=== PATIENT | male | born 1955 | race Caucasian/White ===

== ENCOUNTER 2020-04-07 08:04 | Inpatient (IN) | payer OTHER ==
[~2020-04-07] VITALS: Ht 167.6 cm; Wt 110.0 kg
[~2020-04-07 08:04] MED LIST: ALBU8.5H8 IH; LISI-600 PO
[2020-04-07 09:08] LABS: BASOPHILS % (AUTO) 0.5 % (0-1); EOSINOPHILS # (AUTO) 0.2 X10'3 (0-0.9); EOSINOPHILS % (AUTO) 2.4 % (0-6); HEMATOCRIT 46.8 % (42.0-52.0); HEMOGLOBIN 15.8 g/dl (14.0-17.9); LYMPHOCYTES # (AUTO) 1.8 X10'3 (1.1-4.8); LYMPHOCYTES % (AUTO) 25.1 % (21-51); MEAN CORPUSCULAR HEMOGLOBIN 32.6 PG (27.0-31.0); MEAN CORPUSCULAR HGB CONC 33.8 g/dL (33.0-36.5); MEAN CORPUSCULAR VOLUME 96.2 FL (78-98); MEAN PLATELET VOLUME 8.2 FL (7.4-10.4); MONOCYTES # (AUTO) 0.7 X10'3 (0-0.9); MONOCYTES % (AUTO) 9.9 % (2-12); NEUTROPHILS # (AUTO) 4.4 X10'3 (1.8-7.7); NEUTROPHILS % (AUTO) 62.1 % (42-75); PLATELET COUNT 254 X10'3 (140-440); RED BLOOD COUNT 4.87 X10'6 (4.70-6.10); RED CELL DISTRIBUTION WIDTH 14.7 % (11.5-14.5); WHITE BLOOD COUNT 7.2 X10'3 (4.5-11.0)
[2020-04-07 09:22] LABS: ALANINE AMINOTRANSFERASE 26 U/L (12-78); ALBUMIN 3.3 G/DL (3.4-5.0); ALBUMIN/GLOBULIN RATIO 0.9 (1.1-1.5); ALKALINE PHOSPHATASE 68 IU/L (46-116); ANION GAP 8 (8-16); ASPARTATE AMINO TRANSFERASE 22 U/L (10-37); BILIRUBIN,TOTAL 0.3 MG/DL (0.1-1.0); BLOOD UREA NITROGEN 12 MG/DL (7-18); BUN/CREATININE RATIO 13.8 (5.4-32.0); CALCIUM 8.1 MG/DL (8.5-10.1); CHLORIDE 106 MMOL/L (99-107); CREATININE 0.87 MG/DL (0.60-1.10); GLUCOSE 150 MG/DL (70-104); POTASSIUM 4.5 MMOL/L (3.5-5.1); SODIUM 140 MMOL/L (135-145); TOTAL CARBON DIOXIDE 26.1 MMOL/L (24-32); TOTAL PROTEIN 6.8 G/DL (6.4-8.2); eGFR 89 ML/MIN
[2020-04-07] MEDS ORDERED: CefTRIAXone/D5W-Rocephin 1gm 50 ML IV ONE (10:00)
[2020-04-07] MEDS ORDERED: normal saline 1000ML IV soln IVB ONE (10:00)
--- NOTE | 2020-04-07 10:47 | NUR ---
Moise Goins RN is in the room with the patient attempting to collect blood cultures, repeat lactic acid and repeat troponin labs at this time. Pt is pending COVID-19 swab results at this time.
--- NOTE | 2020-04-07 11:10 | NUR ---
Informed Dr. Campo that he has been taking 32 tabs of ASA per day, used methaphamines yesterday. Dr. Campo gave [facility] health diet to start now.
[2020-04-07] MEDS ORDERED: ATOR20TA66 PO (11:41)
[2020-04-07] MEDS ORDERED: METF-950 PO (11:41)
--- NOTE | 2020-04-07 11:48 | NUR ---
Dr. Reese phoned about the patient and will come see him to give admission orders.
[2020-04-07] MEDS ORDERED: levoFLOXACIN-Levaquin 500mg/D5 100 ML IV SCH (12:10)
[2020-04-07] MEDS ORDERED: potassium Cl 20 mEq SR tablet PO PRN ×2 (12:10)
[2020-04-07] MEDS ORDERED: ondansetron/PF 4mg/2ml inj IV PRN (12:10)
[2020-04-07] MEDS ORDERED: acetaminophen 325mg tablet PO PRN (12:10)
[2020-04-07] MEDS ORDERED: potassium CL 10mEq/100ml bag 100 ML IV PRN ×2 (12:10)
--- NOTE | 2020-04-07 12:18 | NUR ---
Sakina GUTIERREZ at bedside.
[2020-04-07] MEDS ORDERED: ALBU8.5H8 IH (12:24)
[2020-04-07] MEDS ORDERED: AMLO10TA13 PO (12:24)
[2020-04-07] MEDS ORDERED: LISI-600 PO (12:24)
[2020-04-07] MEDS ORDERED: ASPI-1264 PO (12:33)
[2020-04-07] MEDS ORDERED: ALBUTEROL (12:38)
[2020-04-07] MEDS ORDERED: TIOT18CA3 INH (12:38)
--- NOTE | 2020-04-07 13:10 | NUR ---
Attempted to phone report to [place] nurse, Receiving RN is unavailable to take report but will return the call in a few moments.
[2020-04-07 13:29] LABS: HEMOGLOBIN A1C 7.9 % (4.5-6.2)
--- NOTE | 2020-04-07 13:31 | NUR ---
Patient in room ED 3. I have received report from MATT Ewing and had the opportunity to ask questions and assume patient care.
[2020-04-07 15:01] VITALS: BP 126/78
--- NOTE | 2020-04-07 16:03 | NUR ---
Pt is threatening to leave the hospital. talking to someone on the phone stating "as soon as you get here I will remove this IV and walk out of here". pt has been uncooperative with care since his arrival to this floor.
[2020-04-07] MEDS ORDERED: HYDROcodone/acetaminophen 10/325mg tab PO PRN (16:45)
[2020-04-07] MEDS ORDERED: insulin Lispro (HumaLOG) vial - multi-dose SQ SCH (16:45)
[2020-04-07] MEDS ORDERED: MESSAGE TO PHARMACY PO ONE (16:45)
[2020-04-07] MEDS ORDERED: dextrose 50%-water 50ml dispensing syringe IV PRN ×2 (16:45)
[2020-04-07] MEDS ORDERED: glucagon, human recombinant 1mg kit SUBCUT PRN (16:45)
[2020-04-07] MEDS ORDERED: dextrose ORAL solution 15 GM/59 ML bottle PO PRN ×2 (16:45)
--- NOTE | 2020-04-07 18:53 | NUR ---
Problems reprioritized. Patient report given, questions answered & plan of care reviewed with MATT Kelly.
--- NOTE | 2020-04-07 18:54 | NUR ---
Patient in room JOE 346. I have received report from MATT Schwartz and had the opportunity to ask questions and assume patient care.
[2020-04-07 19:00] VITALS: BP 125/68
[2020-04-07] MEDS: ipratropium/albuterol 3ml nebule NEB SCH ×2 (19:20→23:35)
[2020-04-07] MEDS: heparin, porcine 5000 units/ml vial SQ SCH (19:47)
[2020-04-07] MEDS: furosemide 40mg/4ml inj IV SCH (19:47)
[2020-04-07] MEDS ORDERED: K and/or MAG REPLACEMENT MC SCH (20:00)
[2020-04-07] MEDS ORDERED: insulin glargine (Lantus) pen - multi-dose SQ SCH (21:00)
[2020-04-08] VITALS: BP 133/90
[2020-04-08 04:58] LABS: BASOPHILS % (AUTO) 0.7 % (0-1); EOSINOPHILS # (AUTO) 0.2 X10'3 (0-0.9); EOSINOPHILS % (AUTO) 2.9 % (0-6); HEMOGLOBIN 16.6 g/dl (14.0-17.9); LYMPHOCYTES # (AUTO) 1.9 X10'3 (1.1-4.8); LYMPHOCYTES % (AUTO) 27.3 % (21-51); MEAN CORPUSCULAR HEMOGLOBIN 31.7 PG (27.0-31.0); MEAN CORPUSCULAR HGB CONC 33.2 g/dL (33.0-36.5); MEAN CORPUSCULAR VOLUME 95.5 FL (78-98); MONOCYTES # (AUTO) 0.6 X10'3 (0-0.9); MONOCYTES % (AUTO) 8.8 % (2-12); NEUTROPHILS # (AUTO) 4.2 X10'3 (1.8-7.7); NEUTROPHILS % (AUTO) 60.3 % (42-75); PLATELET COUNT 264 X10'3 (140-440); RED BLOOD COUNT 5.24 X10'6 (4.70-6.10); RED CELL DISTRIBUTION WIDTH 15.3 % (11.5-14.5); WHITE BLOOD COUNT 6.9 X10'3 (4.5-11.0)
[2020-04-08 05:07] LABS: ALBUMIN 3.5 G/DL (3.4-5.0); ANION GAP 6 (8-16); BLOOD UREA NITROGEN 17 MG/DL (7-18); BUN/CREATININE RATIO 15.7 (5.4-32.0); CALCIUM 8.9 MG/DL (8.5-10.1); CHLORIDE 104 MMOL/L (99-107); CHOL/HDL RATIO 2.7 (0.00-4.99); CHOLESTEROL 128 MG/DL (0-200); CREATININE 1.08 MG/DL (0.60-1.10); GLUCOSE 145 MG/DL (70-104); HDL CHOLESTEROL 47 MG/DL (35-60); LDL CHOLESTEROL 68 MG/DL (50-100); POTASSIUM 4.4 MMOL/L (3.5-5.1); SODIUM 139 MMOL/L (135-145); TOTAL CARBON DIOXIDE 29.1 MMOL/L (24-32); TRIGLYCERIDES 68 MG/DL (20-135); eGFR 69 ML/MIN
--- NOTE | 2020-04-08 05:57 | NUR ---
received report from ED, RN, patient was transported on rmonument to her room. In no apparent distress. Addendum: 04/08/20 at 0559 by Robin Howard RN wrong patient
--- NOTE | 2020-04-08 06:40 | NUR ---
Problems reprioritized. Patient report given, questions answered & plan of care reviewed with MATT Moran.
--- NOTE | 2020-04-08 06:45 | NUR ---
Patient in room JOE 346. I have received report from Robin GUTIERREZ and had the opportunity to ask questions and assume patient care.
[2020-04-08 07:00] VITALS: BP 142/88
[2020-04-08] MEDS: ipratropium/albuterol 3ml nebule NEB SCH (07:21)
--- NOTE | 2020-04-08 07:21 | NUR ---
Patient wanted to go for a walk, I instructed patient to have portable oxygen with him while walking because he came here for COPD. Lung sounds were clear upon auscultation. RT came by, I told patient to have his breathing treatment done at least prior to walking. Patient stated he is okay to walk and that he would stop walking if he got short of breath. RT talking to the patient at the moment.
[2020-04-08] MEDS: heparin, porcine 5000 units/ml vial SQ SCH (08:00)
--- NOTE | 2020-04-08 08:50 | NUR ---
Paged Dr. Maxwell regarding patient wanted to leave. MESSAGE: Surgical Flr Dean RN ext [phone]. RE: Min Colunga. Patient very upset right now and want to leave. He wants to take Metformin and his BP meds. Please call
[2020-04-08] MEDS: furosemide 40mg/4ml inj IV SCH (09:08)
--- NOTE | 2020-04-08 09:11 | NUR ---
Patient went AMA, refused to sign the AMA form. Patient requested Lasix IV to be given. Lasix given, patient educated about possible side effect like dizziness and urinary frequency. Advised patient to get up gradually to prevent dizziness. Peripheral IV catheter removed, tip intact. Tele monitor removed. Advised patient to go to the ER if symptoms recur or worsen. Advised patient to ensure he has all his belongings with him before leaving. Charge nurse Salome aware of this situation, Dr. Maxwell has been notified via page that patient is leaving
--- NOTE | 2020-04-08 10:23 | NUR ---
Called patient on his phone, I let him know he left his home meds at our pharmacy and advised him to pick it up
== END 2020-04-08 09:36 | disposition left against medical advice (07) | DRG 192 ==
LOC: ER 08:05 → ED HOLD 12:09 → EDBEDREQ 12:53 → SUR 3N 13:50
PROVIDERS: ADMIT Internal Medicine; ATTEND Internal Medicine
DX: J44.1 Chronic obstructive pulmonary disease with (acute) exacerbation (principal); E11.9 Type 2 diabetes mellitus without complications; E78.5 Hyperlipidemia, unspecified; I10 Essential (primary) hypertension; F17.210 Nicotine dependence, cigarettes, uncomplicated; F15.90 Other stimulant use, unspecified, uncomplicated; Z53.29 Procedure and treatment not carried out because of patient's decision for other reasons; Z88.1 Allergy status to other antibiotic agents; Z79.84 Long term (current) use of oral hypoglycemic drugs; Z79.899 Other long term (current) drug therapy
CPT/HCPCS: 36415; 71045; 80048; 80053; 80061; 82948; 83036; 83605; 83880; 84484; 85025; 87040; 87081; 87635; 93005; 93306; 94640; 94760; 99285; G0378; J0696; J1815; J1940; J1956; J7030

== ENCOUNTER 2020-04-08 19:08 | Inpatient (IN) | payer OTHER ==
[~2020-04-08] VITALS: Ht 170.2 cm; Wt 109.1 kg
[~2020-04-08 19:08] MED LIST changes: +ALBUTEROL; +AMLO10TA13 PO; +ASPI-1264 PO; +ATOR20TA66 PO; +METF-950 PO; +TIOT18CA3 INH
[2020-04-08] MEDS ORDERED: furosemide 40mg/4ml inj IV ONE (20:10)
[2020-04-08] MEDS ORDERED: methylPREDNISolone sod succ 125mg/2ml vial IV ONE (20:10)
[2020-04-08 20:43] LABS: BASOPHILS % (AUTO) 0.6 % (0-1); EOSINOPHILS # (AUTO) 0.2 X10'3 (0-0.9); HEMATOCRIT 49.3 % (42.0-52.0); HEMOGLOBIN 16.6 g/dl (14.0-17.9); LYMPHOCYTES # (AUTO) 2.1 X10'3 (1.1-4.8); LYMPHOCYTES % (AUTO) 24.9 % (21-51); MEAN CORPUSCULAR HEMOGLOBIN 32.3 PG (27.0-31.0); MEAN CORPUSCULAR HGB CONC 33.7 g/dL (33.0-36.5); MEAN CORPUSCULAR VOLUME 95.9 FL (78-98); MEAN PLATELET VOLUME 8.2 FL (7.4-10.4); MONOCYTES # (AUTO) 0.8 X10'3 (0-0.9); MONOCYTES % (AUTO) 9.8 % (2-12); NEUTROPHILS # (AUTO) 5.2 X10'3 (1.8-7.7); NEUTROPHILS % (AUTO) 62.7 % (42-75); PLATELET COUNT 281 X10'3 (140-440); RED BLOOD COUNT 5.14 X10'6 (4.70-6.10); WHITE BLOOD COUNT 8.3 X10'3 (4.5-11.0)
[2020-04-08 20:51] LABS: PARTIAL THROMBOPLASTIN TIME 29 SECONDS (22-32)
[2020-04-08 20:54] LABS: ALANINE AMINOTRANSFERASE 31 U/L (12-78); ALBUMIN 3.6 G/DL (3.4-5.0); ALKALINE PHOSPHATASE 71 IU/L (46-116); ANION GAP 9 (8-16); ASPARTATE AMINO TRANSFERASE 23 U/L (10-37); BILIRUBIN,TOTAL 0.4 MG/DL (0.1-1.0); BLOOD UREA NITROGEN 21 MG/DL (7-18); BUN/CREATININE RATIO 16.5 (5.4-32.0); CALCIUM 9.4 MG/DL (8.5-10.1); CHLORIDE 104 MMOL/L (99-107); CREATININE 1.27 MG/DL (0.60-1.10); GLUCOSE 127 MG/DL (70-104); POTASSIUM 4.8 MMOL/L (3.5-5.1); SODIUM 141 MMOL/L (135-145); TOTAL CARBON DIOXIDE 28.4 MMOL/L (24-32); TOTAL PROTEIN 7.3 G/DL (6.4-8.2); eGFR 57 ML/MIN
[2020-04-08] MEDS ORDERED: normal saline 1000ML IV soln IVB ONE (21:05)
[2020-04-08] MEDS ORDERED: ipratropium/albuterol 3ml nebule NEB ONE (22:40)
[2020-04-08] MEDS ORDERED: bisacodyl 10mg suppository rectal RC PRN (22:50)
[2020-04-08] MEDS ORDERED: ondansetron/PF 4mg/2ml inj IV PRN (22:50)
[2020-04-08] MEDS ORDERED: magnesium 4gm in 100ml NS 100 ML IV PRN (22:50)
[2020-04-08] MEDS ORDERED: HYDROcodone/acetaminophen 5mg/325mg tablet PO PRN (22:50)
[2020-04-08] MEDS ORDERED: magnesium Cl slow-release 64mg tablet PO PRN (22:50)
[2020-04-08] MEDS ORDERED: potassium Cl 20 mEq SR tablet PO PRN ×2 (22:50)
[2020-04-08] MEDS ORDERED: potassium CL 10mEq/100ml bag 100 ML IV PRN ×2 (22:50)
[2020-04-08] MEDS ORDERED: mag hydrox/Alum hydrox/simeth 30ml oral suspension PO PRN (22:50)
[2020-04-08] MEDS ORDERED: magnesium hydroxide 30ml (MOM) UD suspension PO PRN (22:50)
[2020-04-08] MEDS ORDERED: magnesium 2GM in 50ml NS 50 ML IV PRN (22:50)
[2020-04-08] MEDS ORDERED: acetaminophen 325mg tablet PO PRN (22:50)
--- NOTE | 2020-04-09 01:36 | NUR ---
PT PLACED ONTO A HOSPITAL BED
--- NOTE | 2020-04-09 02:00 | NUR ---
PT STATED HE DIDN'T WANT VITALS CHECKED, HE WANTED TO SLEEP
[2020-04-09] MEDS ORDERED: dextrose 50%-water 50ml dispensing syringe IV PRN ×2 (05:55)
[2020-04-09] MEDS ORDERED: dextrose ORAL solution 15 GM/59 ML bottle PO PRN ×2 (05:55)
[2020-04-09] MEDS ORDERED: MESSAGE TO PHARMACY PO ONE (05:55)
[2020-04-09] MEDS ORDERED: glucagon, human recombinant 1mg kit SUBCUT PRN (05:55)
[2020-04-09 06:40] LABS: BASOPHILS % (AUTO) 0.3 % (0-1); EOSINOPHILS % (AUTO) 0.1 % (0-6); HEMATOCRIT 49.4 % (42.0-52.0); HEMOGLOBIN 16.4 g/dl (14.0-17.9); LYMPHOCYTES # (AUTO) 0.7 X10'3 (1.1-4.8); LYMPHOCYTES % (AUTO) 7.3 % (21-51); MEAN CORPUSCULAR HEMOGLOBIN 31.7 PG (27.0-31.0); MEAN CORPUSCULAR HGB CONC 33.1 g/dL (33.0-36.5); MEAN CORPUSCULAR VOLUME 95.9 FL (78-98); MONOCYTES # (AUTO) 0.1 X10'3 (0-0.9); MONOCYTES % (AUTO) 0.8 % (2-12); NEUTROPHILS # (AUTO) 8.7 X10'3 (1.8-7.7); NEUTROPHILS % (AUTO) 91.5 % (42-75); PLATELET COUNT 295 X10'3 (140-440); RED BLOOD COUNT 5.16 X10'6 (4.70-6.10); WHITE BLOOD COUNT 9.5 X10'3 (4.5-11.0)
[2020-04-09 07:05] LABS: ALANINE AMINOTRANSFERASE 33 U/L (12-78); ALBUMIN 3.5 G/DL (3.4-5.0); ALBUMIN/GLOBULIN RATIO 0.9 (1.1-1.5); ALKALINE PHOSPHATASE 66 IU/L (46-116); ANION GAP 11 (8-16); ASPARTATE AMINO TRANSFERASE 21 U/L (10-37); BILIRUBIN,TOTAL 0.4 MG/DL (0.1-1.0); BLOOD UREA NITROGEN 26 MG/DL (7-18); BUN/CREATININE RATIO 20.3 (5.4-32.0); CALCIUM 8.9 MG/DL (8.5-10.1); CHLORIDE 101 MMOL/L (99-107); CREATININE 1.28 MG/DL (0.60-1.10); GLUCOSE 326 MG/DL (70-104); MAGNESIUM 2.1 MG/DL (1.5-2.4); POTASSIUM 4.7 MMOL/L (3.5-5.1); SODIUM 138 MMOL/L (135-145); TOTAL CARBON DIOXIDE 26.2 MMOL/L (24-32); TOTAL PROTEIN 7.2 G/DL (6.4-8.2); eGFR 57 ML/MIN
--- NOTE | 2020-04-09 07:47 | NUR ---
CALLED TO GIVE REPORT BUT NURSE IS PASSING MEDS AND WILL CALL BACK.
[2020-04-09] MEDS: K and/or MAG REPLACEMENT MC SCH ×2 (08:00→20:00)
--- NOTE | 2020-04-09 08:06 | NUR ---
Patient in room ED 16. I have received report from Romina GUTIERREZ in ER and had the opportunity to ask questions. Awaiting patient arrival to the unit.
[2020-04-09 08:15] VITALS: BP 138/86
--- NOTE | 2020-04-09 08:15 | NUR ---
Patient arrived to unit. VSS, tele box on
[2020-04-09] MEDS: docusate sod 100mg capsule PO SCH ×2 (08:40→19:13)
[2020-04-09] MEDS: predniSONE 20 mg tablet PO SCH (08:41)
[2020-04-09] MEDS: enoxaparin 40mg/0.4ml syringe SQ SCH (08:42)
[2020-04-09] MEDS: furosemide 40mg/4ml inj IV SCH (08:42)
--- NOTE | 2020-04-09 08:51 | NUR ---
Morning blood sugar 284, insulin being sent up from pharmacy, will continue to monitor closely.
[2020-04-09] MEDS ORDERED: albuterol 2.5 MG/3 ML nebule NEB PRN (09:45)
[2020-04-09] MEDS: amLODIPine 5mg tablet PO SCH (10:00)
[2020-04-09] MEDS: atorvastatin 20mg tablet PO SCH (10:00)
[2020-04-09] MEDS: lisinopril 20mg tablet PO SCH (10:01)
[2020-04-09] MEDS: aspirin 325mg tablet PO SCH (10:01)
[2020-04-09] MEDS: ipratropium 0.5 MG/2.5ML nebule IH SCH ×3 (10:17→20:00)
[2020-04-09 12:00] VITALS: BP 114/45
[2020-04-09] MEDS: insulin Lispro (HumaLOG) vial - multi-dose SQ SCH ×2 (12:42→19:12)
[2020-04-09 15:00] VITALS: BP 122/84
--- NOTE | 2020-04-09 16:05 | NUR ---
PT SLEEPING NAD RN AGRES NOT TO WAKE HE CAN BE QUITE CANTANKEROUS Addendum: 04/09/20 at 1610 by Twyla Elizabeth RT Amended: Links added.
--- NOTE | 2020-04-09 18:10 | NUR ---
Problems reprioritized. Patient report given, questions answered & plan of care reviewed with Emily GUTIERREZ.
[2020-04-09 19:00] VITALS: BP 130/74
[2020-04-09] MEDS ORDERED: insulin glargine (Lantus) pen - multi-dose SQ SCH (21:00)
[2020-04-09 23:00] VITALS: BP 110/71
[2020-04-09 23:36] VITALS: BP 130/74
[2020-04-10] MEDS: ipratropium 0.5 MG/2.5ML nebule IH SCH ×2 (02:00→08:00)
[2020-04-10 03:00] VITALS: BP 145/88
--- NOTE | 2020-04-10 06:24 | NUR ---
Patient in room PCU 3012C. I have received report from Emily GUTIERREZ and had the opportunity to ask questions and assume patient care.
[2020-04-10 06:30] VITALS: BP 129/84
[2020-04-10 06:31] LABS: BASOPHILS % (AUTO) 0.1 % (0-1); EOSINOPHILS % (AUTO) 0.3 % (0-6); HEMATOCRIT 49.3 % (42.0-52.0); HEMOGLOBIN 16.4 g/dl (14.0-17.9); LYMPHOCYTES # (AUTO) 1.5 X10'3 (1.1-4.8); LYMPHOCYTES % (AUTO) 12.4 % (21-51); MEAN CORPUSCULAR HEMOGLOBIN 31.8 PG (27.0-31.0); MEAN CORPUSCULAR HGB CONC 33.3 g/dL (33.0-36.5); MEAN CORPUSCULAR VOLUME 95.4 FL (78-98); MEAN PLATELET VOLUME 8.1 FL (7.4-10.4); MONOCYTES # (AUTO) 0.9 X10'3 (0-0.9); MONOCYTES % (AUTO) 7.9 % (2-12); NEUTROPHILS # (AUTO) 9.5 X10'3 (1.8-7.7); NEUTROPHILS % (AUTO) 79.3 % (42-75); PLATELET COUNT 277 X10'3 (140-440); RED BLOOD COUNT 5.17 X10'6 (4.70-6.10); WHITE BLOOD COUNT 11.9 X10'3 (4.5-11.0)
[2020-04-10 06:46] LABS: ALANINE AMINOTRANSFERASE 31 U/L (12-78); ALBUMIN 3.4 G/DL (3.4-5.0); ALBUMIN/GLOBULIN RATIO 0.9 (1.1-1.5); ALKALINE PHOSPHATASE 63 IU/L (46-116); ANION GAP 6 (8-16); ASPARTATE AMINO TRANSFERASE 20 U/L (10-37); BILIRUBIN,TOTAL 0.6 MG/DL (0.1-1.0); BLOOD UREA NITROGEN 24 MG/DL (7-18); BUN/CREATININE RATIO 22.9 (5.4-32.0); CALCIUM 8.8 MG/DL (8.5-10.1); CHLORIDE 101 MMOL/L (99-107); CREATININE 1.05 MG/DL (0.60-1.10); GLUCOSE 150 MG/DL (70-104); MAGNESIUM 2.3 MG/DL (1.5-2.4); PHOSPHORUS 3.5 MG/DL (2.3-4.5); POTASSIUM 4.4 MMOL/L (3.5-5.1); SODIUM 139 MMOL/L (135-145); TOTAL CARBON DIOXIDE 31.7 MMOL/L (24-32); eGFR 71 ML/MIN
[2020-04-10 07:39] VITALS: BP_SYST 129
[2020-04-10] MEDS: amLODIPine 5mg tablet PO SCH (07:39)
[2020-04-10] MEDS: lisinopril 20mg tablet PO SCH (07:39)
[2020-04-10] MEDS: predniSONE 20 mg tablet PO SCH (07:40)
[2020-04-10] MEDS: aspirin 325mg tablet PO SCH (07:40)
[2020-04-10] MEDS: furosemide 40mg/4ml inj IV SCH (07:40)
[2020-04-10] MEDS: docusate sod 100mg capsule PO SCH (07:40)
[2020-04-10] MEDS: atorvastatin 20mg tablet PO SCH (07:41)
[2020-04-10] MEDS: enoxaparin 40mg/0.4ml syringe SQ SCH (07:44)
[2020-04-10] MEDS: K and/or MAG REPLACEMENT MC SCH (08:00)
[2020-04-10] MEDS ORDERED: PRED10TA23 PO (10:55)
[2020-04-10] MEDS ORDERED: POTA20TA19 PO (10:55)
[2020-04-10] MEDS ORDERED: FURO-149 PO (10:55)
--- NOTE | 2020-04-10 11:45 | NUR ---
Per MD, patient stable for discharge home. Discharge packet completed and given to patient. All questions answered. [facility] Patient already has appt with Dr Ellen Farias, primary MD, in [place] scheduled for end of this month (patient was unable to tell me specific date and when I called to try and get an earlier appt, answering service would not allow me to). IV removed and tele monitor removed and returned to local telephone operator. Patient escorted from hospital by nursing assistant and driven home via private vehicle
== END 2020-04-10 11:45 | disposition home or self-care (01) | DRG 291 ==
LOC: ER 19:09 → ED HOLD 22:50 → PCU 3S 04-09 08:15
PROVIDERS: ADMIT Family Medicine; ATTEND Family Medicine
DX: I11.0 Hypertensive heart disease with heart failure (principal); J96.21 Acute and chronic respiratory failure with hypoxia; J44.1 Chronic obstructive pulmonary disease with (acute) exacerbation; N17.9 Acute kidney failure, unspecified; E11.9 Type 2 diabetes mellitus without complications; I50.33 Acute on chronic diastolic (congestive) heart failure; R00.0 Tachycardia, unspecified; Z88.1 Allergy status to other antibiotic agents; Z79.899 Other long term (current) drug therapy
CPT/HCPCS: 36415; 71045; 80053; 82948; 83036; 83735; 83880; 84100; 85025; 85610; 85730; 87081; 93005; 94640; 94760; 96361; 96374; 96375; 99285; G0378; J1650; J1815; J1940; J2930; J7030; J7512